=== PATIENT | female | born 1950 | race Caucasian/White ===

== ENCOUNTER 2021-09-13 15:57 | Outpatient (CLI) | payer MEDICARE | END 2021-09-13 15:58 | disposition home or self-care (01) | LOC: CSHMRI 15:57 | PROVIDERS: ATTEND Orthopaedic Surgery | DX: S83.242D Other tear of medial meniscus, current injury, left knee, subsequent encounter (principal); M94.262 Chondromalacia, left knee; M23.304 Other meniscus derangements, unspecified medial meniscus, left knee; M89.8X6 Other specified disorders of bone, lower leg ==